=== PATIENT | female | born 1985 | race Caucasian/White ===

== ENCOUNTER 2017-07-01 12:55 | Outpatient (CLI) | payer OTHER, BC | END 2017-07-01 12:56 | disposition home or self-care (01) | LOC: LABBT 12:55 | PROVIDERS: ATTEND Surgery | DX: Z01.818 Encounter for other preprocedural examination (principal); K81.1 Chronic cholecystitis ==

== ENCOUNTER 2017-07-16 05:52 | Day surgery (SDC) | payer OTHER, BC ==
[2017-07-01 13:10] VITALS: BMI 30.1
[2017-07-16] MEDS ORDERED: Levofloxacin 500 mg/D5W 100 ml Premix Bag ONE (06:10)
[2017-07-16] MEDS ORDERED: Bupivacaine/Epinephrine 0.25% 30 ML VIAL ONE (07:29)
[2017-07-16] MEDS ORDERED: Fentanyl 250 MCG/5 ML VIAL ONE (07:30)
--- NOTE | 2017-07-16 07:31 | HP ---
CHIEF COMPLAINT: Right upper quadrant abdominal pain. HISTORY OF PRESENT ILLNESS: A 32-year-old female with a several month history of epigastric and righ t upper quadrant pain, radiating to back, associated with nausea. Negative ultrasound, EGD and colon oscopy negative. HIDA scan showed a low ejection fraction. PAST MEDICAL HISTORY: Seasonal allergies. PAST SURGICAL HISTORY: Appendectomy. MEDICATIONS: None. ALLERGY: ROCEPHIN. FAMILY HISTORY: Father had heart disease and hypertension. Mother with diabetes. SOCIAL HISTORY: No tobacco or alcohol. PHYSICAL EXAMINATION: VITAL SIGNS: Height 5 feet 2 inches, weight 171, body mass index 30. GENERAL: She is a well-developed, well-nourished female, in no apparent distress. HEENT: No jaundice. LUNGS: Clear. HEART: Regular rate and rhythm. ABDOMEN: Soft, nontender, good bowel sounds. EXTREMITIES: Unremarkable. ASSESSMENT: Chronic cholecystitis. PLAN: Laparoscopic cholecystectomy. CONSENT: I have discussed the planned procedure as well as risk of bleeding, infection, injury to bi le duct, injury to bowel, need to open. She understands and gives informed consent.
[2017-07-16] MEDS ORDERED: Midazolam HCl 2 mg/2 ml Vial ONE (07:40)
[2017-07-16] MEDS ORDERED: Ondansetron HCl/PF 4 MG/2 ML Vial ONE (08:04)
[2017-07-16] MEDS ORDERED: Propofol 200 MG/20 ML VIAL ONE (08:04)
[2017-07-16] MEDS ORDERED: Glycopyrrolate 0.2 MG/ML 5 ML SYRINGE ONE ×2 (08:04)
[2017-07-16] MEDS ORDERED: Dexamethasone 20 MG/5 ML VIAL ONE (08:04)
[2017-07-16] MEDS ORDERED: SUGAMMADEX SODIUM 200 MG/2 ML VIAL ONE (08:41)
[2017-07-16] MEDS ORDERED: Promethazine HCl 25 MG/ML VIAL ONE (08:54)
[2017-07-16] MEDS ORDERED: Meperidine HCl/PF 25 MG/ML VIAL ONE (08:54)
[2017-07-16] MEDS ORDERED: Ketorolac Tromethamine 30 MG/ML VIAL ONE (08:59)
[2017-07-16] MEDS ORDERED: Fentanyl 100 MCG/2 ML VIAL ONE (09:02)
--- NOTE | 2017-07-16 10:23 | OP ---
PREOPERATIVE DIAGNOSIS: Chronic cholecystitis. SURGEON: Ford Villarreal M.D. PROCEDURE PERFORMED: Laparoscopic cholecystectomy. INDICATIONS: This is a 32-year-old female who has been having episodic right upper quadrant pain rad iating to the back associated with nausea. Ultrasound negative, EGD negative, colonoscopy negative. HIDA scan showed a low ejection fraction. FINDINGS: Very tiny cystic duct. PROCEDURE: After informed consent was obtained, the patient was taken to the operating room and give n general endotracheal anesthesia. She was placed in the supine position. The abdomen was prepped a nd draped in the usual fashion. Local anesthesia infiltrated subcutaneously and deep. A subumbilica l incision was performed. The subcu divided sharply. Fascia grasped and two stay sutures of 0 Vicry l placed to either side of midline. Midline incised. Digital palpation revealed no local adhesions. A blunt 10-12 mm trocar inserted. Pneumoperitoneum was created to a pressure of 15 mmHg and 0 degr ee laparoscope inserted under direct vision, three 5 mm ports placed subcostally. Gallbladder graspe d and advanced superiorly. Peritoneum lysed distally revealed small cystic duct and artery. These w ere dissected out to include the critical view, triply ligated with Hemoclips and divided. Gallbladd er removed from its fossa utilizing electrocautery, removed from the abdomen through the umbilical po rt. Hemostasis was assured. Trocars and retractors removed. The fascia closed with interrupted 0 V icryl sutures. Skin closed with interrupted 4-0 Rapide. Dermabond applied. The patient tolerated t he procedure well and transferred to recovery in good condition. Sponge and needle count verified co rrect x2.
[2017-07-16] MEDS ORDERED: HYDROcodone/Acetaminophen 5/325 mg Tablet ONE (10:37)
== END 2017-07-16 11:14 | disposition home or self-care (01) ==
LOC: SDC 05:52
PROVIDERS: ATTEND Surgery
PROC: 0FT44ZZ Resection of Gallbladder, Percutaneous Endoscopic Approach (ICD-10-PCS; principal; 2017-07-16)
DX: K81.1 Chronic cholecystitis (principal); Z88.1 Allergy status to other antibiotic agents; Z79.899 Other long term (current) drug therapy; Z90.49 Acquired absence of other specified parts of digestive tract
CPT/HCPCS: 88304; 96374; J1100; J1885; J1956; J2175; J2250; J2405; J2550; J2704; J3010

== ENCOUNTER 2017-08-10 07:56 | Outpatient (CLI) | payer OTHER, BC ==
--- NOTE | 2017-08-10 11:53 | NM ---
EXAM: NUCLEAR MEDICINE HIDA SCAN: HISTORY: Previous cholecystectomy. Right upper quadrant pain and fluid noted on recent CT. Evaluate for a bi le leak. COMPARISON: None. TECHNIQUE: The patient is administered 4.9 mCi of Technetium 99m mebrofenin intravenously. FINDINGS: There is appropriate uptake of the radiotracer by the hepatic parenchyma. There is localization of r adiotracer into the common bile duct and into small bowel loops. There is no evidence of radiotracer outside of the biliary system or alimentary canal to suggest a leak. IMPRESSION: No scintigraphic evidence of a biliary leak. POS: [facility]
== END 2017-08-10 07:57 | disposition home or self-care (01) ==
LOC: NM 07:56
PROVIDERS: ATTEND Surgery
DX: R10.11 Right upper quadrant pain (principal)
CPT/HCPCS: 78226; A9537

== ENCOUNTER 2018-05-26 07:55 | Outpatient (CLI) | payer BC, OTHER ==
--- NOTE | 2018-05-26 10:34 | MRI ---
MRI CERVICAL SPINE: 05/26/2018 PROVIDED CLINICAL HISTORY: Cervical disk disorder. FINDINGS: Cervical alignment appears normal. Vertebral body heights appear preserved. Mild disk space narrowi ng at C5-C6. No focal concerning regional marrow signal abnormality. Visualized posterior fossa, ce rvicomedullary junction, and cervical spinal cord demonstrate normal signal and morphology. At C2-C3, there is no significant central canal or foraminal narrowing apparent. At C3-C4, there is no significant central canal or foraminal narrowing apparent. At C4-C5, there is no significant central canal or foraminal narrowing apparent. At C5-C6, there is a broad-based disk bulge, which effaces the ventral subarachnoid space and approxi mates the ventral cord, with probable mild cord flattening. No significant foraminal narrowing appar ent. At C6-C7, no significant central canal or foraminal narrowing apparent. At C7-T1, no significant central canal or foraminal narrowing apparent. IMPRESSION: Disk degenerative change at C5-C6 with associated central canal narrowing, as described. POS: [facility]
== END 2018-05-26 07:56 | disposition home or self-care (01) ==
LOC: BICMRI 07:55
PROVIDERS: ATTEND Family Medicine
DX: M50.822 Other cervical disc disorders at C5-C6 level (principal); M50.322 Other cervical disc degeneration at C5-C6 level; M48.02 Spinal stenosis, cervical region
CPT/HCPCS: 72141

== ENCOUNTER 2019-01-13 13:41 | Outpatient (CLI) | payer BC, OTHER ==
--- NOTE | 2019-01-13 14:38 | MRI ---
MRI Cervical Spine WO Con History: [M 54.12 cervical radiculopathy] Comparison: MRI cervical spine 2018 Findings: No cervical adenopathy is appreciated. Cerebral tonsils terminate just below the foramen ma gnum. Paraspinal musculature is normal. No marrow infiltrative process. Cord signal is normal. Levels are as follows: C2/C3: Normal disc. No neural foraminal or spinal canal narrowing. C3/C4: Mild disc. No neural foraminal or spinal canal narrowing. C4/C5: Small central annular fissure posteriorly. No neural foraminal or spinal canal narrowing. C5/C6: There is mild degenerative disc space height loss. Moderate uncinate process hypertrophy. Type I Modic endplate changes posteriorly. Broad-based posterior disc osteophyte complex narrows the ventral CSF space with cord abutment and narrowing the spinal canal to approximately 8 mm. There is m oderate right and mild left neural foraminal narrowing. C6/C7: Low-grade disc desiccation. No neural foraminal or spinal canal narrowing. C7/T1: Normal disc. No neural foraminal or spinal canal narrowing. Impression: Degenerative changes centered at C5/C6 with cord abutment and moderate right and mild lef t neural foraminal narrowing.
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
== END 2019-01-13 13:42 | disposition home or self-care (01) ==
LOC: TBSIIMAG 13:41
PROVIDERS: ATTEND Surgery
DX: M47.22 Other spondylosis with radiculopathy, cervical region (principal); M48.02 Spinal stenosis, cervical region; M25.78 Osteophyte, vertebrae
CPT/HCPCS: 72050; 72141

== ENCOUNTER 2019-03-07 05:32 | Day surgery (SDC) | payer BC, OTHER ==
[2019-03-06 12:41] VITALS: BMI 32.8
[2019-03-07] MEDS ORDERED: Thrombin 5000 UNITS/5 ML VIAL ONE (06:34)
[2019-03-07] MEDS ORDERED: Sodium Chloride 0.9% 10 ML ONE (06:34)
[2019-03-07 06:46] LABS: INR-International Normal Ratio 1.1; PTT 32.3 SEC (22.9-36.1); Prothrombin Time 14.3 SEC (12.0-14.7)
[2019-03-07] MEDS ORDERED: Fentanyl 250 MCG/5 ML VIAL ONE (06:46)
[2019-03-07] MEDS ORDERED: Midazolam HCl 2 mg/2 ml Vial ONE (06:46)
[2019-03-07 06:47] LABS: #Basophils 0.1 thou/uL (0.0-0.2); #Eosinphils 0.1 thou/uL (0.0-0.7); #Lymphocytes 2.8 thou/uL (1.20-3.40); #Monocytes 0.5 thou/uL (0.11-0.59); #Neutrophils 4.2 thou/uL (1.40-6.50); %Lymphocytes 36.9 % (21.0-51.0); %Monocytes 6.4 % (0.0-10.0); %Neutrophils 54.7 % (42.0-75.0); Mean Corpuscular HGB CONC 32.5 g/dL (32.0-36.0); Mean Corpuscular Hemoglobin 28.8 pg (27.0-31.0); Mean Corpuscular Volume 88.8 fL (78.0-98.0); Mean Platelet Volume 6.9 fL (7.4-10.4); Platelet Count 291 thou/uL (130-400); RBC Distribution Width 11.8 % (11.5-14.5); Red Blood Cell (RBC) Count 4.52 mill/uL (4.20-5.40); White Blood Cell (WBC) Count 7.6 thou/uL (4.8-10.8)
[2019-03-07 06:58] LABS: Anion Gap 13 mmol/L (10-20); BUN (Urea Nitrogen) 11 mg/dL (7.0-18.7); Calc. Creatinine Clearance 127 mL/min (70-130); Calcium 9.3 mg/dL (7.8-10.44); Carbon Dioxide 22 mmol/L (22-29); Chloride 106 mmol/L (98-107); Estimated GFR-MDRD 79; Glucose 77 mg/dL (70-105); Potassium 3.8 mmol/L (3.5-5.1); Sodium 137 mmol/L (136-145)
[2019-03-07] MEDS ORDERED: Lidocaine 4% Topical Sol 50 ML BOT ONE (07:13)
[2019-03-07] MEDS ORDERED: HYDROmorphone 2 MG/ML VIAL ONE (08:17)
[2019-03-07] MEDS ORDERED: Fentanyl 100 MCG/2 ML VIAL ONE ×3 (09:47→11:19)
[2019-03-07] MEDS ORDERED: traMADol HCl 50 MG TAB PO PRN (09:51)
[2019-03-07] MEDS ORDERED: Fleet Enema 133 ML BOT PR PRN (09:51)
[2019-03-07] MEDS ORDERED: Acetaminophen/Codeine 30-300mg Tablet PO PRN (09:51)
[2019-03-07] MEDS ORDERED: Acetaminophen 325 MG TAB PO PRN (09:51)
[2019-03-07] MEDS ORDERED: Mag-Al 1200 mg/1200 mg/30 ML UDCUP PO PRN (09:51)
[2019-03-07] MEDS ORDERED: Ondansetron PF 4 MG/2 ML Vial IVP PRN (09:51)
[2019-03-07] MEDS ORDERED: Milk Of Magnesia 30 ML UDCUP PO PRN (09:51)
[2019-03-07] MEDS ORDERED: Bisacodyl 10 MG SUPP PR PRN (09:51)
[2019-03-07] MEDS ORDERED: HYDROcodone/Acetaminophen 7.5/325 mg Tablet PO PRN (09:51)
[2019-03-07] MEDS ORDERED: Cyclobenzaprine 10 MG TAB PO PRN (09:54)
[2019-03-07] MEDS ORDERED: CEFAZOLIN 2 GM in Premix Bag 1 BAG IVPB SCH (10:00)
[2019-03-07] MEDS ORDERED: Cyclobenzaprine 10 MG TAB ONE (11:12)
[2019-03-07] MEDS ORDERED: Promethazine HCl 25 MG/ML VIAL ONE (12:12)
--- NOTE | 2019-03-07 12:51 | OP ---
DATE OF PROCEDURE: 03/07/2019 BAG PATCHER: Nelson Kothari PA-C LOCATION: OR 12. WOUND CLASSIFICATION: Type 1 wound. PREPROCEDURE DIAGNOSES: C5-C6 deformity with C5-C6 stenosis and neck and arm pain, cervical radiculopathy. POSTPROCEDURE DIAGNOSES: C5-C6 deformity with C5-C6 stenosis and neck and arm pain, cervical radiculopathy. PROCEDURES PERFORMED: 1. Anterior C5-C6 diskectomy, decompression of spinal cord and C6 nerve roots and correction of deformity. 2. Placement of interbody spacer for arthrodesis C5-C6 packed with local bone autograft obtained from same incision, allograft. 3. Use of operative microscope for microdissection. 4. Anterior C5-C6 plate screw fixation. DESCRIPTION OF PROCEDURE: After informed consent was obtained from the patient, the patient was brought to the OR. Proper patient, pause, and identification were carried out. She was placed under excellent general endotracheal anesthesia and positioned supine on the OR table. All appropriate points were padded. We identified the right anterior transverse cali to allow for approach to the C5-C6 segments. We then following sterile cleansing, preparation, and draping, opened the wound and proceeded lateral to the tracheoesophageal bundle medial to the right carotid sheath. We identified the prevertebral layer of deep cervical fascia and localization film confirmed our area of interest. We then performed distraction at C5-C6 and diskectomy at C5-C6 was performed with use of operative microscope for microdissection with excellent decompression of spinal cord nerve roots. We then placed interbody spacer following appropriate arthrodesis preparation. We then removed the microscope and anterior cervical plate and screw fixation at C5-C6 and final tightening then occurred. Copious irrigation occurred throughout as did maximizing hemostasis. The wound was then closed in anatomic layers following placement of a drain and the patient emerged from anesthesia. Job ID: [id number]
[2019-03-07] MEDS ORDERED: Morphine 2 MG/ML SYRINGE ONE (15:38)
[2019-03-07] MEDS ORDERED: PROPOFOL 200 MG/20 ML VIAL ONE (15:47)
[2019-03-07] MEDS ORDERED: Dexamethasone 20 MG/5 ML VIAL ONE (15:47)
[2019-03-07] MEDS ORDERED: Rocuronium Bromide 10 MG/ML (10ML VIAL) ONE (15:47)
[2019-03-07] MEDS ORDERED: Glycopyrrolate 0.2 MG/ML 5 ML SYRINGE ONE (15:47)
[2019-03-07] MEDS ORDERED: Ondansetron PF 4 MG/2 ML Vial ONE (15:47)
[2019-03-07] MEDS ORDERED: Ketorolac Tromethamine 30 MG/ML VIAL ONE (15:47)
[2019-03-07] MEDS ORDERED: Lidocaine 1% PF 5 ML VIAL ONE (15:47)
[2019-03-07] MEDS: Sodium Chloride 0.9% 1,000 ML IV SCH ×2 (17:16→23:39)
[2019-03-07] MEDS: Morphine 2 MG/ML SYRINGE SLOW IVP PRN (18:32)
[2019-03-07] MEDS ORDERED: Pregabalin 25 MG CAP PO SCH (21:00)
[2019-03-07] MEDS: CEFAZOLIN 2 GM in Premix Bag 1 BAG IVPB SCH (23:38)
[2019-03-08] MEDS: Morphine 2 MG/ML SYRINGE SLOW IVP PRN ×2 (00:24→04:03)
[2019-03-08 08:14] VITALS: BP 123/83; TEMP 98.7
[2019-03-08] MEDS: CEFAZOLIN 2 GM in Premix Bag 1 BAG IVPB SCH (08:18)
--- NOTE | 2019-03-08 16:52 | EKG ---
Test Reason : PREOP Blood Pressure : / mmHG Vent. Rate : 084 BPM Atrial Rate : 084 BPM P-R Int : 186 ms QRS Dur : 082 ms QT Int : 390 ms P-R-T Axes : 045 037 010 degrees QTc Int : 460 ms Normal sinus rhythm Normal ECG No previous ECGs available Confirmed by KAMALA REA ([id number]) on 03/08/2019 4:52:12 PM Referred By: PILI Confirmed By:KAMALA REA
--- NOTE | 2019-03-09 01:58 | DIS ---
DATE OF ADMISSION: 03/07/2019 DATE OF DISCHARGE: 03/08/2019 This is Nelson Kothari PA-C dictating a report for Willy Gonzalez MD. DISCHARGE DIAGNOSES: 1. Neck pain with lumbar radiculopathy. 2. Cervical herniated disk with stenosis. HOSPITAL COURSE: Ms. Vickers was admitted to undergo C5-C6 ACDF with Dr. Gonzalez. Her surgery was without complication and she required one overnight stay for adequate pain control and observation of drain output. Her drain was removed. At the time of discharge, she was doing well. She has some left scapular, shoulder, and neck pain, but otherwise has significant improvement in arm and bilateral hand symptoms. She had good strength in bilateral upper extremities with intact sensation to light touch throughout. Her drain was removed and she was discharged home. Appropriate patient education and outpatient followup appointments. She and her were pleased with her outcome postoperatively and doing well. Job ID: [id number]
== END 2019-03-08 10:52 | disposition home or self-care (01) ==
LOC: SDC 05:32 → SJJU 09:49 → SDC 03-08 10:52
PROVIDERS: ATTEND Surgery
PROC: 0RG10A0 Fusion of Cervical Vertebral Joint with Interbody Fusion Device, Anterior Approach, Anterior Column, Open Approach (ICD-10-PCS; principal; 2019-03-08)
PROC: 0RT30ZZ Resection of Cervical Vertebral Disc, Open Approach (ICD-10-PCS; principal; 2019-03-08)
DX: M50.122 Cervical disc disorder at C5-C6 level with radiculopathy (principal); M48.02 Spinal stenosis, cervical region; Z79.899 Other long term (current) drug therapy; Z88.1 Allergy status to other antibiotic agents
CPT/HCPCS: 36415; 76000; 80048; 85025; 85610; 85730; 93005; 93010; C1713; C1776; J0131; J0690; J1100; J1170; J1885; J2001; J2250; J2270; J2405; J2550; J2704; J3010; J3490

== ENCOUNTER 2019-04-19 08:06 | Outpatient (CLI) | payer BC, OTHER ==
--- NOTE | 2019-04-19 08:43 | RAD ---
Exam: 4 views cervical spine COMPARISON: 01/03/2014 FINDINGS: No prevertebral soft tissue swelling. Predental space is normal. There is an anterior fusio n plate with transvertebral body screw at C5 and C6. No perihardware lucency. Disc prosthesis at the C5-C6. No significant loss of disc space height. No fracture. Stable straightening of normal cerv ical lordosis On the AP projection, mild facet arthropathy. No malalignment. Limited evaluation the cervicothoracic junction on the swimmer's IMPRESSION: Uncomplicated cervical fusion hardware at C5 and C6
== END 2019-04-19 08:07 | disposition home or self-care (01) ==
LOC: TBSIIMAG 08:06
PROVIDERS: ATTEND Surgery
DX: M54.2 Cervicalgia (principal); Z98.1 Arthrodesis status
CPT/HCPCS: 72040

== ENCOUNTER 2019-09-07 13:48 | Outpatient (CLI) | payer BC, OTHER ==
--- NOTE | 2019-09-07 15:14 | MMO ---
Bilateral MAMMO Bilat Diag [facility]. CLINICAL HISTORY: Patient is 34 years old and is seen for diagnostic exam. The patient has no family history of breast cancer. The patient has no personal history of cancer. VIEWS: The views performed were: bilateral craniocaudal with tomosynthesis; bilateral mediolateral oblique with tomosynthesis; and bilateral mediolateral with tomosynthesis. FILMS COMPARED: The present examination has been compared to a prior imaging study performed at [facility] on 09/07/2019. This study has been interpreted with the assistance of computer-aided detection. MAMMOGRAM FINDINGS: There are scattered fibroglandular densities. There are no suspicious masses, suspicious calcifications, or new areas of architectural distortion. IMPRESSION: THERE IS NO MAMMOGRAPHIC EVIDENCE OF MALIGNANCY. A ROUTINE FOLLOW-UP MAMMOGRAM AT AGE 39 IS RECOMMENDED. THE RESULTS OF THIS EXAM WERE SENT TO THE PATIENT. ACR BI-RADS Category 1 - Negative MAMMOGRAPHY NOTE: 1. A negative mammogram report should not delay a biopsy if a dominant of clinically suspicious mass is present. 2. Approximately 10% to 15% of breast cancers are not detected by mammography. 3. Adenosis and dense breasts may obscure an underlying neoplasm. Reported by: TED FAYE MD Electonically Signed: [id number]
--- NOTE | 2019-09-07 16:43 | ULT ---
FOCUSED ULTRASOUND OF THE LEFT BREAST 09/07/19 COMPARISON: None. HISTORY: 34-year-old female who reports that her physician palpated an abnormality at the 6 o'clock position o f the left breast. The patient is unable to palpate an abnormality at this time. FINDINGS: Focused ultrasound at the 6 o'clock position of the left breast is unremarkable. No mass lesion, shad owing or evidence for cyst. IMPRESSION: Unremarkable focused ultrasound of the left breast. Negative imaging should not delay biopsy of a cli nically suspicious abnormality. POS: [facility]
== END 2019-09-07 13:49 | disposition home or self-care (01) ==
LOC: BICMAMMO 13:48
PROVIDERS: ATTEND Family Medicine
DX: N63.20 Unspecified lump in the left breast, unspecified quadrant (principal); N64.3 Galactorrhea not associated with childbirth
CPT/HCPCS: 77066; G0279

== ENCOUNTER 2020-06-17 08:18 | Outpatient (CLI) | payer BC, OTHER ==
--- NOTE | 2020-06-17 09:08 | CT ---
CT of thecervical spine: 06/17/2020 COMPARISON:None available HISTORY:Neck surgery one year ago, pain and numbness in bilateral hands over the past few months TECHNIQUE: Serial axial CT imaging at2 mm intervals from theskull base through lung apices without co ntrast. Coronal and sagittal reformatted imaging obtained Findings:Evaluation for central canal and/or neural foraminal stenosis is limited on routine CT exami [facility]. Anterior discectomy and fusion hardware is present at C5-6 with no evidence for hardware complication. The visualized lung apices appear unremarkable. The C1 ring, the occipital condyles, the dens, and the C1-2 articulation appear grossly unremarkable. C2-3: No osseous cause of significant central canal or neural foraminal stenosis. C3-4: No osseous cause of significant central canal or neural foraminal stenosis C4-5: No osseous cause of significant central canal or neural foraminal stenosis C5-C6: No osseous cause of significant central canal or neural foraminal stenosis. C6-7: No osseous cause of significant central canal or neural foraminal stenosis C7-T1: No osseous cause of significant central canal or neural foraminal stenosis. No worrisome lytic or blastic bone lesion. No acute fracture or dislocation. No prevertebral soft tis ghazala swelling. Impression:Postoperative changes within the cervical spine. No acute osseous abnormality. No osseous cause of significant central canal or neural foraminal stenosis. If symptoms persist, follow-up CT myelogram may be beneficial.
--- NOTE | 2020-06-17 09:12 | RAD ---
CERVICAL SPINE SERIES WITH FLEXION AND EXTENSION TOTAL OF 6 VIEWS: HISTORY: Neck surgery a year ago, now with pain and numbness in both hands. FINDINGS: The patient has undergone anterior cervical fusion with placement of plate and screws at the C5-6 lev el. Markers of a disk implant are within the intervening disk level. No abnormal motion on the flex ion or extension views. IMPRESSION: Postop changes of the spine. POS: [facility]
--- NOTE | 2020-06-17 10:48 | MRI ---
MRI of thecervical spine with and without contrast: 06/17/2020 COMPARISON:None available HISTORY:Neck surgery one year ago, cervical radiculopathy TECHNIQUE: Multiplanar multisequence MR imaging of thecervical spine with and without contrast Findings:The sagittal STIR imaging demonstrates no focal area of osseous marrow edema. There is anter ior discectomy and fusion hardware present at the C5-6 level. C2-3: No significant central canal or neural foraminal stenosis C3-4: Mild facet hypertrophy on the left with no significant central canal or neural foraminal stenos is. C4-5: Probable small central annular tear. No significant central canal or neural foraminal stenosis. C5-C6: There is a questionable tiny right paracentral disc herniation versus artifact effacing the ve ntral thecal sac and abutting the ventral aspect of the cord. This results in no significant central canal stenosis. There is no significant neural foraminal stenosis on either side. C6-7: No significant central canal or neural foraminal stenosis. C7-T1: No significant central canal or neural foraminal stenosis. No abnormal T2 signal intensity identified within the cervical cord. The postcontrast imaging demonstrates no abnormal enhancement involving the contents of the thecal sa c, the imaged osseous structures, or the intervertebral discs. IMPRESSION: Cervical spine postoperative and degenerative change with no evidence for significant manish tral canal or neural foraminal stenosis.
[2020-06-17] MEDS ORDERED: Magnevist 469MG/ML 20 ML VIAL ONE (11:24)
== END 2020-06-17 08:19 | disposition home or self-care (01) ==
LOC: TBSIIMAG 08:18
PROVIDERS: ATTEND Surgery
DX: M47.22 Other spondylosis with radiculopathy, cervical region (principal); M54.2 Cervicalgia; R20.2 Paresthesia of skin; Z98.890 Other specified postprocedural states
CPT/HCPCS: 72050; 72125; 72156; A9579

== ENCOUNTER 2021-04-24 06:58 | Day surgery (SDC) | payer BC, OTHER ==
[2021-04-23 11:24] VITALS: BMI 33.3
[2021-04-24] MEDS ORDERED: Clindamycin/D5W 600 mg/50 ml Premix Bag ONE (08:37)
[2021-04-24] MEDS ORDERED: Fentanyl 100 MCG/2 ML VIAL ONE ×2 (09:43→11:34)
[2021-04-24] MEDS ORDERED: Dexamethasone 20 MG/5 ML VIAL ONE (09:58)
[2021-04-24] MEDS ORDERED: Lidocaine 1% PF 5 ML VIAL ONE (09:58)
[2021-04-24] MEDS ORDERED: Ketorolac Tromethamine 30 MG/ML VIAL ONE (09:58)
[2021-04-24] MEDS ORDERED: Ondansetron PF 4 MG/2 ML Vial ONE (09:58)
[2021-04-24] MEDS ORDERED: PROPOFOL 200 MG/20 ML VIAL ONE (09:58)
[2021-04-24] MEDS ORDERED: Lidocaine 1% w/Epinephrine 1:100K 20 ML VIAL ONE (10:19)
== END 2021-04-24 14:00 | disposition home or self-care (01) ==
LOC: SDC 06:58
PROVIDERS: ATTEND Orthopaedic Surgery
PROC: 01N40ZZ Release Ulnar Nerve, Open Approach (ICD-10-PCS; principal; 2021-04-24)
PROC: 01N50ZZ Release Median Nerve, Open Approach (ICD-10-PCS; principal; 2021-04-24)
DX: G56.03 Carpal tunnel syndrome, bilateral upper limbs (principal); G56.23 Lesion of ulnar nerve, bilateral upper limbs; Z79.899 Other long term (current) drug therapy; Z88.1 Allergy status to other antibiotic agents; Z98.1 Arthrodesis status
CPT/HCPCS: J1100; J1885; J2405; J2704; J3010; J3490